=== PATIENT | male | born 2000 | race Caucasian/White ===

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

== ENCOUNTER 2019-07-13 12:26 | Emergency (ER) | payer BC ==
[~2019-07-13] VITALS: Ht 182.8 cm; Wt 81.6 kg
[~2019-07-13 12:26] MED LIST changes: +CEPHALEXIN500 M1 PO
[2019-07-13 12:30] VITALS: BP 154/94
[2019-07-13] MEDS ORDERED: IBUPROFEN600 MG PO (15:17)
== END 2019-07-13 15:21 | disposition home or self-care (01) ==
LOC: ED 12:26
DX: S40.012A Contusion of left shoulder, initial encounter (principal); Z79.2 Long term (current) use of antibiotics; Z79.899 Other long term (current) drug therapy; X58.XXXA Exposure to other specified factors, initial encounter; Y93.23 Activity, snow (alpine) (downhill) skiing, snowboarding, sledding, tobogganing and snow tubing; Y92.89 Other specified places as the place of occurrence of the external cause; Y99.8 Other external cause status

== ENCOUNTER → 2020-12-13 | Outpatient (CLI) | payer BC ==
[~2020-12-13] MED LIST changes: +IBUPROFEN600 MG PO
[2020-12-13 11:22] LABS: HEMATOCRIT 45.8 % (42.0-52.0); MEAN CELL VOLUME 99.1 fl (80.0-94.0); MEAN CORPUSCULAR HGB 35.1 pg (27.0-31.0); MEAN CORPUSCULAR HGB CONC 35.4 g/dl (33.0-37.0); MEAN PLATELET VOLUME 9.6 fl (9.6-12.3); RED BLOOD COUNT 4.62 10*6/uL (4.50-5.90); RED CELL DISTRI WIDTH 11.7 % (0-14.5); WHITE BLOOD COUNT 6.9 10*3/uL (4.8-10.8)
[2020-12-13 11:37] LABS: ALBUMIN 3.8 gm/dl (3.1-4.5); ALKALINE PHOSPHATASE 83 U/L (45-117); BUN 28 mg/dl (7-24); CHLORIDE 107 mmol/L (98-107); CHOLESTEROL 210 mg/dL (<200); CREATININE 1.02 mg/dL (0.70-1.30); LDL CHOLESTEROL 138 mg/dL (9-159); POTASSIUM 3.8 mmol/L (3.5-5.1); SGOT/AST 15 IU/L (3-35); SGPT/ALT 50 U/L (12-78); SODIUM 139 mmol/L (136-145); TOTAL PROTEIN 7.5 gm/dL (6.4-8.2); TRIGLYCERIDES 107 mg/dl (<150)
== END | disposition home or self-care (01) ==
LOC: LAB 11:02
PROVIDERS: ATTEND Family Medicine
DX: Z13.220 Encounter for screening for lipoid disorders (principal); F90.9 Attention-deficit hyperactivity disorder, unspecified type

== ENCOUNTER 2024-05-27 12:38 | Emergency (ER) | payer OTHER ==
[~2024-05-27] VITALS: Ht 182.8 cm; Wt 99.8 kg
[2024-05-27] MEDS ORDERED: DIVALPROEX SOD250 MG PO (12:49)
[2024-05-27] MEDS ORDERED: RISPERIDONE1 MG PO (12:49)
[2024-05-27 12:52] VITALS: BP 143/87
[2024-05-27] MEDS ORDERED: CLOTRIMAZOLE45 G1 T (13:17)
== END 2024-05-27 13:28 | disposition home or self-care (01) ==
LOC: ED 12:38
DX: B35.4 Tinea corporis (principal); J45.909 Unspecified asthma, uncomplicated; Z79.899 Other long term (current) drug therapy

== ENCOUNTER → 2024-09-19 | Outpatient (CLI) | payer OTHER ==
[~2024-09-19] MED LIST changes: +CLOTRIMAZOLE45 G1 T; +DIVALPROEX SOD250 MG PO; +RISPERIDONE1 MG PO
[2024-09-19 08:08] LABS: VALPROIC ACID (DEPAKENE) 77.4 ug/ml (50-100)
== END | disposition home or self-care (01) ==
LOC: LAB 07:20
PROVIDERS: ATTEND Psychiatry & Neurology Psychiatry
DX: Z79.899 Other long term (current) drug therapy (principal)